=== PATIENT | male | born 1965 | race Caucasian/White ===

== ENCOUNTER 2022-02-13 10:33 | Emergency (ER) | payer BC ==
[~2022-02-13] VITALS: Ht 175.3 cm; Wt 113.6 kg
[2022-02-13] MEDS ORDERED: LISI10TA22 PO (10:46)
[2022-02-13] MEDS ORDERED: PANT40TA29 PO (10:46)
[2022-02-13] MEDS ORDERED: ECOT81TA5 PO (10:46)
[2022-02-13 11:45] LABS: BASO # 0.1 10^3/uL (0.0-0.2); BASO % 0.4 % (0.0-1.0); EOS % 0.2 % (0.0-3.0); HEMATOCRIT 51.1 % (42.0-52.0); HEMOGLOBIN 16.7 g/dl (13.5-17.5); LYMPH # 1.2 10^3/uL (1.5-5.0); LYMPH % 7.5 % (24.0-44.0); MEAN CORPUSCULAR HEMOGLOBIN 28.5 pg (27.0-33.0); MEAN CORPUSCULAR HGB CONC 32.7 g/dl (32.0-36.5); MEAN CORPUSCULAR VOLUME 87.4 fl (80.0-96.0); MONO # 1.5 10^3/uL (0.0-0.8); MONO % 9.4 % (2.0-8.0); NEUTROPHILS # 13.3 10^3/uL (1.5-8.5); NEUTROPHILS % 81.9 % (36.0-66.0); PLATELET COUNT, AUTOMATED 341 10^3/uL (150-450); RED BLOOD COUNT 5.85 10^6/uL (4.30-6.10); WHITE BLOOD COUNT 16.2 10^3/uL (4.0-10.0)
[2022-02-13 12:02] LABS: INR 1.16; PROTHROMBIN TIME 15.2 SECONDS (12.7-14.5)
[2022-02-13 12:23] LABS: ALBUMIN 3.6 GM/DL (3.2-5.2); ALT/SGPT 31 U/L (12-78); BILIRUBIN,DIRECT 0.3 MG/DL (0.0-0.2); BILIRUBIN,TOTAL 1.1 MG/DL (0.2-1.0); BLOOD UREA NITROGEN 11 MG/DL (7-18); CALCIUM LEVEL 10.8 MG/DL (8.5-10.1); CARBON DIOXIDE LEVEL 21 MEQ/L (21-32); CHLORIDE LEVEL 103 MEQ/L (98-107); CREATININE FOR GFR 1.23 MG/DL (0.70-1.30); GLOMERULAR FILTRATION RATE > 60.0 (>56); GLUCOSE, FASTING 123 MG/DL (70-100); LIPASE 126 U/L (73-393); POTASSIUM SERUM 4.7 MEQ/L (3.5-5.1); SODIUM LEVEL 136 MEQ/L (136-145); TOTAL PROTEIN 7.8 GM/DL (6.4-8.2)
[2022-02-13 12:24] LABS: CK-MB VALUE MASS 2.5 NG/ML (<3.6); MB/CK RELATIVE INDEX 2.66 (< OR =4)
[2022-02-13] MEDS ORDERED: atenoloL 25 MG TAB PO ONE (12:35)
[2022-02-13] MEDS ORDERED: ASPIRIN 325 MG TAB PO ONE (12:35)
[2022-02-13 12:45] VITALS: BP 151/100
[2022-02-13 14:18] LABS: CK-MB VALUE MASS 2.4 NG/ML (<3.6); MB/CK RELATIVE INDEX 2.76 (< OR =4)
[2022-02-13 15:35] LABS: RSV AMPLIFICATION NEGATIVE (NEGATIVE)
[2022-02-13] MEDS ORDERED: ISOVUE-370 76% 100ML VIAL As Ordered ONE (19:09)
[2022-02-13] MEDS ORDERED: HEPARIN DRIP 25,000 UNITS in IV 1 EA IV SCH (20:30)
[2022-02-13] MEDS ORDERED: HEPARIN SOD (PORCINE) 5000UNITS/ML 1ML VIAL/SYRINGE IV ONE (20:30)
[2022-02-13 21:13] LABS: INR 1.09; PROTHROMBIN TIME 14.5 SECONDS (12.7-14.5)
[2022-02-13 21:14] LABS: PARTIAL THROMBOPLASTIN TIME 30.7 SECONDS (25.9-37.0)
[2022-02-13 21:31] LABS: RSV AMPLIFICATION NEGATIVE (NEGATIVE)
[2022-02-13 23:15] VITALS: BP 129/84
== END 2022-02-13 23:47 | disposition short-term general hospital (02) ==
LOC: M ED 10:33
DX: I21.4 Non-ST elevation (NSTEMI) myocardial infarction (principal); I31.3 Pericardial effusion (noninflammatory); I35.8 Other nonrheumatic aortic valve disorders; I10 Essential (primary) hypertension; Z79.811 Long term (current) use of aromatase inhibitors; Z79.899 Other long term (current) drug therapy
CPT/HCPCS: 71045; 71275; 80048; 80076; 82550; 82553; 83690; 84484; 85025; 85610; 85730; 87631; 93005; 93041; 93306; 94760; 96374; 96375; 99285; J1644; Q9967

== ENCOUNTER 2022-03-26 01:48 | Inpatient (IN) | payer BC ==
[~2022-03-26] VITALS: Ht 175.3 cm; Wt 114.6 kg
[~2022-03-26 01:48] MED LIST: ECOT81TA5 PO; LISI10TA22 PO; PANT40TA29 PO
[2022-03-26] MEDS ORDERED: ATOR40TA75 PO (01:55)
[2022-03-26] MEDS ORDERED: XARE20TA PO (01:55)
[2022-03-26] MEDS ORDERED: NS 1,000 ML IV ONE (07:15)
[2022-03-26] MEDS ORDERED: ACETAMINOPHEN 1000MG 100ML IV BTL (OFIRMEV) (J0131 PER 10MG) IV ONE (07:15)
[2022-03-26] MEDS ORDERED: dexameTHASONE 20MG/5ML VIAL (J1100 PER 1MG) IV ONE (07:20)
[2022-03-26] MEDS ORDERED: ISOVUE-370 76% 100ML VIAL As Ordered ONE (07:39)
[2022-03-26 07:40] LABS: BASO # 0.1 10^3/uL (0.0-0.2); BASO % 0.2 % (0.0-1.0); HEMATOCRIT 49.1 % (42.0-52.0); HEMOGLOBIN 16.2 g/dl (13.5-17.5); LYMPH # 0.8 10^3/uL (1.5-5.0); MEAN CORPUSCULAR HEMOGLOBIN 28.4 pg (27.0-33.0); MEAN CORPUSCULAR VOLUME 86.1 fl (80.0-96.0); MONO % 8.1 % (2.0-8.0); NEUTROPHILS % 87.8 % (36.0-66.0); PLATELET COUNT, AUTOMATED 316 10^3/uL (150-450); WHITE BLOOD COUNT 27.3 10^3/uL (4.0-10.0)
[2022-03-26] MEDS ORDERED: AMPICILLIN SOD/SULBACTAM SOD 3 GM in D5W MINI-BAG PLUS 100 ML IV ONE (07:50)
[2022-03-26 07:52] LABS: INR 1.88
[2022-03-26 07:53] LABS: PARTIAL THROMBOPLASTIN TIME 46.1 SECONDS (25.9-37.0)
[2022-03-26 07:57] LABS: MONO # 2.2 10^3/uL (0.0-0.8)
[2022-03-26] MEDS ORDERED: NS IV ONE (08:00)
[2022-03-26] MEDS ORDERED: PANTOPRAZOLE 40MG VIAL IV ONE (08:00)
[2022-03-26 08:03] LABS: MONO SCRN NEGATIVE (NEGATIVE)
[2022-03-26 08:14] LABS: ALBUMIN 3.7 GM/DL (3.2-5.2); BILIRUBIN,DIRECT 0.6 MG/DL (0.0-0.2); BILIRUBIN,TOTAL 1.8 MG/DL (0.2-1.0)
[2022-03-26] MEDS ORDERED: SILD50TA2 PO (09:55)
[2022-03-26] MEDS ORDERED: VITMTA PO (09:55)
[2022-03-26] MEDS ORDERED: HOME MED LIST COMPLETE! XX SCH (10:00)
[2022-03-26] MEDS ORDERED: CETACAINE SPRAY 5GM As Ordered ONE (10:50)
[2022-03-26] MEDS ORDERED: PROPOFOL 1,000 MG/100 ML VIAL As Ordered ONE (10:51)
[2022-03-26] MEDS ORDERED: LIDOCAINE W/EPINEPHRINE 1% 20ML VIAL As Ordered ONE (11:00)
[2022-03-26] MEDS ORDERED: propofoL 1,000 MG in IV 1 EA IV SCH (11:20)
[2022-03-26] MEDS ORDERED: KETAMINE HCL 200 MG/20 ML VIAL As Ordered ONE (12:05)
[2022-03-26] MEDS ORDERED: LIDOCAINE 2% 100MG/5ML SDV (FOR ANES.) As Ordered ONE (12:05)
[2022-03-26] MEDS ORDERED: ROCURONIUM BROMIDE 50 MG/5 ML VIAL As Ordered ONE (12:05)
[2022-03-26] MEDS ORDERED: MIDAZOLAM 5MG/ML 1ML VIAL (J2250 PER 1MG) As Ordered ONE (12:05)
[2022-03-26] MEDS ORDERED: propofoL 200 MG/20 ML VIAL As Ordered ONE (12:05)
[2022-03-26] MEDS: fentaNYL 100 MCG/2 ML INJECTION IV PRN ×6 (12:05→20:03)
[2022-03-26] MEDS ORDERED: fentaNYL 100 MCG/2 ML INJECTION As Ordered ONE (12:05)
[2022-03-26] MEDS ORDERED: SUGAMMADEX SODIUM 500 MG/5 ML VIAL (BRIDION) As Ordered ONE (12:05)
[2022-03-26] MEDS ORDERED: METOCLOPRAMIDE INJ 10MG/2ML VIAL (J2765 PER 1) IV PRN (12:10)
[2022-03-26] MEDS ORDERED: ONDANSETRON 4MG 2ML VIAL IV PRN ×2 (12:10→15:20)
[2022-03-26] MEDS ORDERED: LR 1,000 ML IV SCH (12:10)
[2022-03-26] MEDS: HYDROMORPHONE HCL 0.5 MG/ 0.5 ML SYRINGE (J1170 PER 1) IV PRN ×4 (12:33→13:43)
[2022-03-26] MEDS ORDERED: MIDAZOLAM INJ 2MG/2ML VIAL (J2250 PER 1MG) IV PRN (12:50)
[2022-03-26 14:34] VITALS: BP 142/91
[2022-03-26] MEDS: cefTRIAXone SOD 2 GM in D5W MINI-BAG PLUS 50 ML IV SCH (15:04)
[2022-03-26] MEDS: LR 1,000 ML IV SCH (15:04)
[2022-03-26 15:19] LABS: INR 1.39; PROTHROMBIN TIME 17.4 SECONDS (12.7-14.5)
[2022-03-26 15:20] LABS: PARTIAL THROMBOPLASTIN TIME 41.5 SECONDS (25.9-37.0)
[2022-03-26 15:43] LABS: CK-MB VALUE MASS < 1.0 NG/ML (<3.6); CPK CREATINE PHOSPHOKINASE 115 U/L (39-308); MB/CK RELATIVE INDEX 0.87 (< OR =4)
[2022-03-26 15:45] LABS: AMYLASE 21 U/L (25-115)
[2022-03-26] MEDS: IPRATROPIUM 0.5MG/ALBUTEROL 2.5MG INH SOL UD 3ML (DUONEB) NEB SCH ×2 (15:48→19:47)
[2022-03-26] MEDS ORDERED: VANCOMYCIN HCL 1,000 MG, VIAL MATE ADAPTER 1 EACH in NS 250 ML IV ONE ×2 (16:00→17:00)
[2022-03-26 16:29] VITALS: BP 133/87
[2022-03-26 16:36] LABS: ALT/SGPT 31 U/L (12-78); BILIRUBIN,TOTAL 1.2 MG/DL (0.2-1.0); BLOOD UREA NITROGEN 11 MG/DL (7-18); CALCIUM LEVEL 9.6 MG/DL (8.5-10.1); CARBON DIOXIDE LEVEL 21 MEQ/L (21-32); CHLORIDE LEVEL 111 MEQ/L (98-107); CREATININE FOR GFR 0.83 MG/DL (0.70-1.30); GLOMERULAR FILTRATION RATE > 60.0 (>56); GLUCOSE, FASTING 134 MG/DL (70-100); POTASSIUM SERUM 4.3 MEQ/L (3.5-5.1); SODIUM LEVEL 139 MEQ/L (136-145)
[2022-03-26 20:00] VITALS: BP 132/79
[2022-03-26] MEDS: CHLORHEXIDINE GLUCONATE 0.12 % 15ML UDC (PERIDEX ORAL RINSE) MT SCH (20:03)
[2022-03-26 21:00] VITALS: BP 148/88
[2022-03-26 22:00] VITALS: BP 138/89
[2022-03-26 23:00] VITALS: BP 130/77
[2022-03-26] MEDS: VANCOMYCIN HCL 750 MG, VIAL MATE ADAPTER 1 EACH in D5W 250 ML IV SCH (23:20)
[2022-03-27] VITALS (12 sets, daily range): BP systolic 127–158; BP diastolic 78–92; O2SAT 95
[2022-03-27] MEDS: fentaNYL 100 MCG/2 ML INJECTION IV PRN ×4 (01:23→16:05)
[2022-03-27] MEDS: LR 1,000 ML IV SCH (05:49)
[2022-03-27] MEDS: IPRATROPIUM 0.5MG/ALBUTEROL 2.5MG INH SOL UD 3ML (DUONEB) NEB SCH ×4 (07:38→19:16)
[2022-03-27] MEDS: VANCOMYCIN HCL 750 MG, VIAL MATE ADAPTER 1 EACH in D5W 250 ML IV SCH ×3 (08:16→23:36)
[2022-03-27] MEDS: PANTOPRAZOLE 40MG VIAL IV SCH (08:16)
[2022-03-27] MEDS: CHLORHEXIDINE GLUCONATE 0.12 % 15ML UDC (PERIDEX ORAL RINSE) MT SCH ×2 (08:16→21:24)
[2022-03-27 08:55] LABS: BLOOD UREA NITROGEN 15 MG/DL (7-18); CALCIUM LEVEL 10.1 MG/DL (8.5-10.1); CARBON DIOXIDE LEVEL 24 MEQ/L (21-32); CHLORIDE LEVEL 108 MEQ/L (98-107); CREATININE FOR GFR 0.98 MG/DL (0.70-1.30); GLOMERULAR FILTRATION RATE > 60.0 (>56); GLUCOSE, FASTING 114 MG/DL (70-100); POTASSIUM SERUM 4.3 MEQ/L (3.5-5.1); SODIUM LEVEL 139 MEQ/L (136-145)
[2022-03-27] MEDS ORDERED: HEPARIN SOD (PORCINE) 5000UNITS/ML 1ML VIAL/SYRINGE IV ONE (09:30)
[2022-03-27] MEDS ORDERED: HEPARIN SOD (PORCINE) 5000UNITS/ML 1ML VIAL/SYRINGE IV PRN (09:30)
[2022-03-27 10:18] LABS: HEMATOCRIT 44.3 % (42.0-52.0); MEAN CORPUSCULAR HEMOGLOBIN 27.9 pg (27.0-33.0); MEAN CORPUSCULAR HGB CONC 31.6 g/dl (32.0-36.5); MEAN CORPUSCULAR VOLUME 88.2 fl (80.0-96.0); PLATELET COUNT, AUTOMATED 254 10^3/uL (150-450); RED BLOOD COUNT 5.02 10^6/uL (4.30-6.10); WHITE BLOOD COUNT 19.5 10^3/uL (4.0-10.0)
[2022-03-27] MEDS: HEPARIN DRIP 25,000 UNITS in IV 1 EA IV SCH ×2 (11:36→23:35)
[2022-03-27] MEDS: cefTRIAXone SOD 2 GM in D5W MINI-BAG PLUS 50 ML IV SCH (14:24)
[2022-03-27] MEDS ORDERED: VASOPRESSIN INJ 20 UNITS in NS 499 ML IV SCH (16:30)
[2022-03-27] MEDS ORDERED: MORPHINE 2 MG/ML 1ML VIAL IV PRN (18:15)
[2022-03-28] VITALS (11 sets, daily range): BP systolic 133–152; BP diastolic 79–93; O2SAT 95–97
[2022-03-28] MEDS ORDERED: ACETAMINOPHEN 650 MG SUPP PR PRN (00:20)
[2022-03-28] MEDS: ACETAMINOPHEN TAB 650MG DOSE (2X325MG) PO PRN ×4 (01:41→22:30)
[2022-03-28] MEDS: IPRATROPIUM 0.5MG/ALBUTEROL 2.5MG INH SOL UD 3ML (DUONEB) NEB SCH ×4 (07:06→19:28)
[2022-03-28 07:14] LABS: BASO % 0.1 % (0.0-1.0); EOS % 0.1 % (0.0-3.0); HEMATOCRIT 41.8 % (42.0-52.0); HEMOGLOBIN 13.6 g/dl (13.5-17.5); LYMPH # 1.2 10^3/uL (1.5-5.0); LYMPH % 8.3 % (24.0-44.0); MEAN CORPUSCULAR HGB CONC 32.5 g/dl (32.0-36.5); MEAN CORPUSCULAR VOLUME 86.2 fl (80.0-96.0); MONO % 11.9 % (2.0-8.0); NEUTROPHILS % 78.9 % (36.0-66.0); PLATELET COUNT, AUTOMATED 273 10^3/uL (150-450); RED BLOOD COUNT 4.85 10^6/uL (4.30-6.10); WHITE BLOOD COUNT 13.9 10^3/uL (4.0-10.0)
[2022-03-28] MEDS: VANCOMYCIN HCL 750 MG, VIAL MATE ADAPTER 1 EACH in D5W 250 ML IV SCH (07:25)
[2022-03-28 07:42] LABS: MONO # 1.7 10^3/uL (0.0-0.8)
[2022-03-28 07:54] LABS: BLOOD UREA NITROGEN 12 MG/DL (7-18); CALCIUM LEVEL 9.7 MG/DL (8.5-10.1); CARBON DIOXIDE LEVEL 23 MEQ/L (21-32); CHLORIDE LEVEL 108 MEQ/L (98-107); CREATININE FOR GFR 0.79 MG/DL (0.70-1.30); GLOMERULAR FILTRATION RATE > 60.0 (>56); GLUCOSE, FASTING 133 MG/DL (70-100); MAGNESIUM LEVEL 1.9 MG/DL (1.8-2.4); POTASSIUM SERUM 4.1 MEQ/L (3.5-5.1); SODIUM LEVEL 136 MEQ/L (136-145); VANCOMYCIN LEVEL TROUGH 7.9 UG/ML (10.0-20.0)
[2022-03-28] MEDS: ATORVASTATIN 20 MG TAB NG SCH (08:52)
[2022-03-28] MEDS: CHLORHEXIDINE GLUCONATE 0.12 % 15ML UDC (PERIDEX ORAL RINSE) MT SCH ×2 (08:53→20:25)
[2022-03-28] MEDS: PANTOPRAZOLE 40MG VIAL IV SCH (08:53)
[2022-03-28] MEDS ORDERED: ATORVASTATIN 20 MG TAB PO SCH (09:00)
[2022-03-28] MEDS ORDERED: VANCOMYCIN HCL 500 MG in D5W MINI-BAG PLUS 100 ML IV ONE (10:00)
[2022-03-28] MEDS: HEPARIN DRIP 25,000 UNITS in IV 1 EA IV SCH (12:58)
[2022-03-28] MEDS ORDERED: VANCOMYCIN HCL 1,000 MG, VIAL MATE ADAPTER 1 EACH in D5W 250 ML IV SCH (16:00)
[2022-03-28] MEDS: cefTRIAXone SOD 2 GM in D5W MINI-BAG PLUS 50 ML IV SCH (16:10)
[2022-03-28] MEDS: AMPICILLIN SOD/SULBACTAM SOD 3 GM in D5W MINI-BAG PLUS 100 ML IV SCH ×2 (18:13→23:43)
[2022-03-29] VITALS: BP 141/80
[2022-03-29] MEDS: HEPARIN DRIP 25,000 UNITS in IV 1 EA IV SCH ×2 (01:24→14:11)
[2022-03-29 03:59] VITALS: BP 135/77
[2022-03-29 05:04] LABS: BASO % 0.3 % (0.0-1.0); EOS % 0.3 % (0.0-3.0); HEMATOCRIT 42.8 % (42.0-52.0); HEMOGLOBIN 13.6 g/dl (13.5-17.5); LYMPH # 1.4 10^3/uL (1.5-5.0); LYMPH % 12.8 % (24.0-44.0); MEAN CORPUSCULAR HEMOGLOBIN 27.6 pg (27.0-33.0); MEAN CORPUSCULAR HGB CONC 31.8 g/dl (32.0-36.5); MONO # 1.3 10^3/uL (0.0-0.8); MONO % 12.1 % (2.0-8.0); NEUTROPHILS # 8.1 10^3/uL (1.5-8.5); NEUTROPHILS % 73.8 % (36.0-66.0); PLATELET COUNT, AUTOMATED 300 10^3/uL (150-450); RED BLOOD COUNT 4.92 10^6/uL (4.30-6.10)
[2022-03-29 05:39] LABS: BLOOD UREA NITROGEN 10 MG/DL (7-18); CALCIUM LEVEL 9.9 MG/DL (8.5-10.1); CARBON DIOXIDE LEVEL 26 MEQ/L (21-32); CHLORIDE LEVEL 106 MEQ/L (98-107); CREATININE FOR GFR 0.77 MG/DL (0.70-1.30); GLOMERULAR FILTRATION RATE > 60.0 (>56); GLUCOSE, FASTING 153 MG/DL (70-100); MAGNESIUM LEVEL 1.9 MG/DL (1.8-2.4); POTASSIUM SERUM 3.5 MEQ/L (3.5-5.1); SODIUM LEVEL 135 MEQ/L (136-145)
[2022-03-29] MEDS: ACETAMINOPHEN TAB 650MG DOSE (2X325MG) PO PRN ×4 (06:03→23:59)
[2022-03-29] MEDS: AMPICILLIN SOD/SULBACTAM SOD 3 GM in D5W MINI-BAG PLUS 100 ML IV SCH ×4 (06:03→23:59)
[2022-03-29 06:32] LABS: INR 1.02; PROTHROMBIN TIME 13.8 SECONDS (12.7-14.5)
[2022-03-29 06:33] LABS: PARTIAL THROMBOPLASTIN TIME 70.1 SECONDS (25.9-37.0)
[2022-03-29] MEDS: IPRATROPIUM 0.5MG/ALBUTEROL 2.5MG INH SOL UD 3ML (DUONEB) NEB SCH ×4 (08:00→20:39)
[2022-03-29 08:11] VITALS: BP 137/76
[2022-03-29] MEDS: CHLORHEXIDINE GLUCONATE 0.12 % 15ML UDC (PERIDEX ORAL RINSE) MT SCH ×2 (09:00→20:16)
[2022-03-29] MEDS: ATORVASTATIN 20 MG TAB NG SCH (10:09)
[2022-03-29] MEDS: PANTOPRAZOLE 40MG VIAL IV SCH (10:10)
[2022-03-29 11:39] VITALS: BP 144/82
[2022-03-29] MEDS: guaiFENesin SYRUP 200MG 10ML UDC NG PRN ×2 (14:58→23:59)
[2022-03-29 16:33] VITALS: BP 126/81
[2022-03-29 20:00] VITALS: BP 129/81
[2022-03-30] VITALS (14 sets, daily range): BP systolic 132–152; BP diastolic 76–92; O2SAT 94–98
[2022-03-30] MEDS: HEPARIN DRIP 25,000 UNITS in IV 1 EA IV SCH ×2 (03:42→17:16)
[2022-03-30 05:48] LABS: BASO # 0.1 10^3/uL (0.0-0.2); BASO % 0.6 % (0.0-1.0); EOS # 0.1 10^3/uL (0.0-0.5); EOS % 1.2 % (0.0-3.0); HEMATOCRIT 41.6 % (42.0-52.0); HEMOGLOBIN 13.1 g/dl (13.5-17.5); LYMPH # 1.3 10^3/uL (1.5-5.0); LYMPH % 11.3 % (24.0-44.0); MEAN CORPUSCULAR HEMOGLOBIN 27.5 pg (27.0-33.0); MEAN CORPUSCULAR HGB CONC 31.5 g/dl (32.0-36.5); MEAN CORPUSCULAR VOLUME 87.4 fl (80.0-96.0); MONO # 1.1 10^3/uL (0.0-0.8); NEUTROPHILS # 8.9 10^3/uL (1.5-8.5); NEUTROPHILS % 75.8 % (36.0-66.0); PLATELET COUNT, AUTOMATED 354 10^3/uL (150-450); RED BLOOD COUNT 4.76 10^6/uL (4.30-6.10); WHITE BLOOD COUNT 11.7 10^3/uL (4.0-10.0)
[2022-03-30] MEDS: AMPICILLIN SOD/SULBACTAM SOD 3 GM in D5W MINI-BAG PLUS 100 ML IV SCH ×4 (05:53→23:38)
[2022-03-30 06:05] LABS: INR 1.08; PROTHROMBIN TIME 14.4 SECONDS (12.7-14.5)
[2022-03-30 06:06] LABS: PARTIAL THROMBOPLASTIN TIME 64.6 SECONDS (25.9-37.0)
[2022-03-30 06:22] LABS: BLOOD UREA NITROGEN 12 MG/DL (7-18); C REACTIVE PROTEIN QUANTITATIV 9.18 MG/DL (0.00-0.30); CALCIUM LEVEL 10.5 MG/DL (8.5-10.1); CARBON DIOXIDE LEVEL 26 MEQ/L (21-32); CHLORIDE LEVEL 107 MEQ/L (98-107); GLOMERULAR FILTRATION RATE > 60.0 (>56); GLUCOSE, FASTING 159 MG/DL (70-100); MAGNESIUM LEVEL 2.1 MG/DL (1.8-2.4); POTASSIUM SERUM 3.7 MEQ/L (3.5-5.1); SODIUM LEVEL 139 MEQ/L (136-145)
[2022-03-30] MEDS: IPRATROPIUM 0.5MG/ALBUTEROL 2.5MG INH SOL UD 3ML (DUONEB) NEB SCH ×4 (08:00→20:35)
[2022-03-30] MEDS: guaiFENesin SYRUP 200MG 10ML UDC NG PRN ×4 (08:11→23:39)
[2022-03-30] MEDS: PANTOPRAZOLE 40MG VIAL IV SCH (08:11)
[2022-03-30] MEDS: ATORVASTATIN 20 MG TAB NG SCH (08:12)
[2022-03-30] MEDS: CHLORHEXIDINE GLUCONATE 0.12 % 15ML UDC (PERIDEX ORAL RINSE) MT SCH ×2 (08:13→21:00)
[2022-03-30] MEDS: ACETAMINOPHEN TAB 650MG DOSE (2X325MG) PO PRN (09:01)
[2022-03-30] MEDS: dexameTHASONE 4 MG/ML 1ML VIAL (J1100 PER 1MG) IV SCH ×2 (11:35→21:00)
[2022-03-30 12:51] LABS: INR 1.04
[2022-03-30 12:53] LABS: PARTIAL THROMBOPLASTIN TIME 68.2 SECONDS (25.9-37.0)
[2022-03-31] VITALS (17 sets, daily range): BP systolic 121–148; BP diastolic 75–87; O2SAT 93–97
[2022-03-31] MEDS: HEPARIN DRIP 25,000 UNITS in IV 1 EA IV SCH ×2 (02:24→15:28)
[2022-03-31] MEDS: dexameTHASONE 4 MG/ML 1ML VIAL (J1100 PER 1MG) IV SCH (02:39)
[2022-03-31 05:08] LABS: BASO # 0.1 10^3/uL (0.0-0.2); BASO % 0.5 % (0.0-1.0); HEMATOCRIT 40.7 % (42.0-52.0); HEMOGLOBIN 13.3 g/dl (13.5-17.5); LYMPH # 1.1 10^3/uL (1.5-5.0); LYMPH % 6.1 % (24.0-44.0); MEAN CORPUSCULAR HEMOGLOBIN 28.4 pg (27.0-33.0); MEAN CORPUSCULAR HGB CONC 32.7 g/dl (32.0-36.5); MEAN CORPUSCULAR VOLUME 86.8 fl (80.0-96.0); MONO # 0.5 10^3/uL (0.0-0.8); NEUTROPHILS % 87.7 % (36.0-66.0); PLATELET COUNT, AUTOMATED 392 10^3/uL (150-450); RED BLOOD COUNT 4.69 10^6/uL (4.30-6.10); WHITE BLOOD COUNT 18.2 10^3/uL (4.0-10.0)
[2022-03-31 05:40] LABS: INR 1.06; PROTHROMBIN TIME 14.3 SECONDS (12.7-14.5)
[2022-03-31 05:42] LABS: PARTIAL THROMBOPLASTIN TIME 89.5 SECONDS (25.9-37.0)
[2022-03-31] MEDS: AMPICILLIN SOD/SULBACTAM SOD 3 GM in D5W MINI-BAG PLUS 100 ML IV SCH ×3 (05:42→17:33)
[2022-03-31 06:19] LABS: BLOOD UREA NITROGEN 14 MG/DL (7-18); C REACTIVE PROTEIN QUANTITATIV 5.35 MG/DL (0.00-0.30); CALCIUM LEVEL 10.9 MG/DL (8.5-10.1); CARBON DIOXIDE LEVEL 25 MEQ/L (21-32); CHLORIDE LEVEL 105 MEQ/L (98-107); CREATININE FOR GFR 0.81 MG/DL (0.70-1.30); GLOMERULAR FILTRATION RATE > 60.0 (>56); GLUCOSE, FASTING 149 MG/DL (70-100); MAGNESIUM LEVEL 2.1 MG/DL (1.8-2.4); SODIUM LEVEL 136 MEQ/L (136-145)
[2022-03-31] MEDS: IPRATROPIUM 0.5MG/ALBUTEROL 2.5MG INH SOL UD 3ML (DUONEB) NEB SCH ×4 (08:35→19:28)
[2022-03-31] MEDS: ATORVASTATIN 20 MG TAB NG SCH (09:19)
[2022-03-31] MEDS: PANTOPRAZOLE 40MG VIAL IV SCH (09:20)
[2022-03-31] MEDS: CHLORHEXIDINE GLUCONATE 0.12 % 15ML UDC (PERIDEX ORAL RINSE) MT SCH ×2 (09:20→20:43)
[2022-03-31] MEDS: guaiFENesin SYRUP 200MG 10ML UDC NG PRN (09:27)
[2022-04-01] VITALS (15 sets, daily range): BP systolic 112–134; BP diastolic 66–76; O2SAT 92–96
[2022-04-01] MEDS: AMPICILLIN SOD/SULBACTAM SOD 3 GM in D5W MINI-BAG PLUS 100 ML IV SCH ×3 (00:22→12:00)
[2022-04-01] MEDS: HEPARIN DRIP 25,000 UNITS in IV 1 EA IV SCH ×2 (00:24→07:55)
[2022-04-01] MEDS: ACETAMINOPHEN TAB 650MG DOSE (2X325MG) PO PRN (00:25)
[2022-04-01 06:39] LABS: HEMATOCRIT 40.6 % (42.0-52.0); HEMOGLOBIN 13.2 g/dl (13.5-17.5); MEAN CORPUSCULAR HEMOGLOBIN 28.5 pg (27.0-33.0); MEAN CORPUSCULAR HGB CONC 32.5 g/dl (32.0-36.5); MEAN CORPUSCULAR VOLUME 87.7 fl (80.0-96.0); PLATELET COUNT, AUTOMATED 408 10^3/uL (150-450); RED BLOOD COUNT 4.63 10^6/uL (4.30-6.10); WHITE BLOOD COUNT 17.1 10^3/uL (4.0-10.0)
[2022-04-01 07:02] LABS: BLOOD UREA NITROGEN 15 MG/DL (7-18); C REACTIVE PROTEIN QUANTITATIV 2.01 MG/DL (0.00-0.30); CALCIUM LEVEL 10.3 MG/DL (8.5-10.1); CARBON DIOXIDE LEVEL 28 MEQ/L (21-32); CHLORIDE LEVEL 105 MEQ/L (98-107); CREATININE FOR GFR 0.97 MG/DL (0.70-1.30); GLOMERULAR FILTRATION RATE > 60.0 (>56); GLUCOSE, FASTING 116 MG/DL (70-100); MAGNESIUM LEVEL 2.2 MG/DL (1.8-2.4); POTASSIUM SERUM 4.1 MEQ/L (3.5-5.1); SODIUM LEVEL 139 MEQ/L (136-145)
[2022-04-01 07:07] LABS: INR 1.06; PROTHROMBIN TIME 14.2 SECONDS (12.7-14.5)
[2022-04-01 07:09] LABS: PARTIAL THROMBOPLASTIN TIME 118.3 SECONDS (25.9-37.0)
[2022-04-01] MEDS: IPRATROPIUM 0.5MG/ALBUTEROL 2.5MG INH SOL UD 3ML (DUONEB) NEB SCH ×3 (07:22→15:48)
[2022-04-01 07:37] LABS: ATYPICAL LYMPH 1 % (0-5); LYMPHOCYTES 13 % (16-44); METAMYELOCYTES 1 % (0-0); MONOCYTES 9 % (0-5); MYELOCYTES 2 % (0-0); NEUTROPHILS 69 % (28-66); PLATELET ESTIMATE NORMAL (NORMAL)
[2022-04-01] MEDS: CHLORHEXIDINE GLUCONATE 0.12 % 15ML UDC (PERIDEX ORAL RINSE) MT SCH (09:17)
[2022-04-01] MEDS: ATORVASTATIN 20 MG TAB NG SCH (09:17)
[2022-04-01] MEDS: PANTOPRAZOLE 40MG VIAL IV SCH (09:17)
[2022-04-01] MEDS ORDERED: AUGM500T34 PO (11:14)
[2022-04-01] MEDS ORDERED: [UNRECOGNIZED DRUG - CODE] EX (11:14)
[2022-04-01] MEDS ORDERED: AMOX875T2 PO (12:18)
== END 2022-04-01 15:59 | disposition home or self-care (01) | DRG 98 ==
LOC: M ED 01:48 → M ED INP 10:17 → M ICU 14:25 → M PCU 03-27 21:46
PROVIDERS: ADMIT Internal Medicine; ATTEND Family Medicine
PROC: 0B110F4 Bypass Trachea to Cutaneous with Tracheostomy Device, Open Approach (ICD-10-PCS; principal; 2022-03-26 10:06)
DX: J05.11 Acute epiglottitis with obstruction (principal); K21.9 Gastro-esophageal reflux disease without esophagitis; I10 Essential (primary) hypertension; E78.5 Hyperlipidemia, unspecified; D72.829 Elevated white blood cell count, unspecified; Z79.899 Other long term (current) drug therapy; Z86.711 Personal history of pulmonary embolism; Z86.718 Personal history of other venous thrombosis and embolism; B95.5 Unspecified streptococcus as the cause of diseases classified elsewhere